=== PATIENT | female | born 1980 | race Caucasian/White ===

== ENCOUNTER 2020-03-07 09:28 | Emergency (ER) | payer BC ==
[2020-03-07] MEDS ORDERED: Orphenadrine 60 MG/2 ML Inj IM STA (09:35)
[2020-03-07] MEDS ORDERED: Ketorolac 30 MG/ML SDV IM ONE (09:35)
[2020-03-07] MEDS ORDERED: predniSONE 20 MG Tab PO ONE (09:35)
--- NOTE | 2020-03-07 09:46 | EDM.PDOC ---
ED HPI GENERAL MEDICAL PROBLEM - General Stated Complaint: lower back pain Time Seen by Provider: 03/07/20 09:30 Source of Information: Reports: Patient History Limitations: Reports: No Limitations - History of Present Illness INITIAL COMMENTS - FREE TEXT/NARRATIVE: Patient comes emergency department today from home with complaints of left lower back pain. This patient for the past couple of days has had some pain in the left lower back in the lower lumbar region. She has had no recent falls trauma or injury. This morning when she woke up she had severe tightening and pain in the left lower back. Pain is sharp shooting stabbing burning in nature and goes somewhat down her left buttocks. She denies any loss of bowel or bladder. She denies any paresthesias otherwise. She denies any change in the functionality of her lower extremities. She is able to ambulate without difficulty. She has been taking some Tylenol without improvement. Couple of months ago she had a very similar sequelae where she saw the chiropractor and never really got much better. She has never seen physical therapy for this. No Covid symptoms no Covid exposure. - Related Data Allergies Allergy/AdvReac Type Severity Reaction Status Date / Time Penicillins Allergy Unknown Cannot Verified 06/28/13 18:41 Remember Sulfa (Sulfonamide Allergy Unknown Cannot Verified 06/28/13 18:41 Antibiotics) Remember Home Meds: Home Meds Amphetamine/Dextroamphetamine [Adderall] 20 mg PO DAILY 06/28/13 [History] FLUoxetine HCl [Fluoxetine] 40 mg PO DAILY 06/28/13 [History] Ondansetron [Zofran Odt] 8 mg PO Q8H PRN #5 tab.rapdis 06/28/13 [Rx] Cyclobenzaprine [Flexeril] 10 mg PO TID PRN #12 tab 03/07/20 [Rx] predniSONE [Prednisone] 40 mg PO DAILY #8 tablet 03/07/20 [Rx] ED ROS GENERAL - Review of Systems Review Of Systems: Comprehensive ROS is negative, except as noted in HPI. ED EXAM,LOWER BACK PAIN/INJURY - Physical Exam Exam: See Below Exam Limited By: No Limitations General Appearance: Alert, WD/WN, No Apparent Distress Ears: Normal External Exam Nose: Normal Inspection Throat/Mouth: Normal Inspection Head: Atraumatic Neck: Normal Inspection Respiratory/Chest: No Respiratory Distress, Lungs Clear, Normal Breath Sounds, Chest Non-Tender Cardiovascular: Normal Peripheral Pulses, Regular Rate, Rhythm GI/Abdominal: Normal Bowel Sounds, Soft (Female) Exam: Deferred Rectal (Female) Exam: Deferred Back Exam: Normal Inspection, Paraspinal Tenderness (Very low lumbar almost sacral joint paraspinal tenderness. There is no rash bruising ecchymosis or other signs of trauma or concern.). No: CVA Tenderness (L), CVA Tenderness (R), Vertebral Tenderness Extremities: Normal Inspection, Normal Range of Motion, Normal Capillary Refill Neurological: Alert, Normal Mood/Affect, Normal Dorsiflexion, Normal Plantar Flexion, Normal Gait, Normal Reflexes, No Motor/Sensory Deficits, Oriented x 3 DTR - Lower Extremities: 0: Ankle (L), 2+: Knee (R), Knee (L), Ankle (R) Psychiatric: Normal Affect, Normal Mood Skin Exam: Warm, Dry, Intact, Normal Color, No Rash Course - Orders/Labs/Meds Orders: Active Orders 24 hr Category Date Time Status Cyclobenzaprine [Take Home: Cyclobenzaprine 10 MG, 4 Med 03/07/20 10:14 Once Tab Pack] 1 packet PO ONETIME ONE Meds: Medications Discontinued Medications Generic Name Dose Route Start Last Admin Trade Name Freq PRN Reason Stop Dose Admin Ketorolac Tromethamine 30 mg 03/07/20 09:35 03/07/20 09:42 Toradol IM 03/07/20 09:36 30 mg ONETIME ONE Administration Orphenadrine Citrate 60 mg 03/07/20 09:35 03/07/20 09:45 Norflex IM 03/07/20 09:36 60 mg NOW STA Administration Prednisone 40 mg 03/07/20 09:35 03/07/20 09:48 Prednisone PO 03/07/20 09:36 40 mg ONETIME ONE Administration - Re-Assessments/Exams Free Text/Narrative Re-Assessment/Exam: 03/07/20 09:46 Ketorolac 30 mg IM. Norflex 60 mg IM. Prednisone 40 mg p.o. 03/07/20 10:25 Patient had quite a bit of improvement of her pain with the above therapy. I discussed home management of this as well as symptomatic management and physical therapy techniques. I did print some exercises for her to complete at home. We will send her home with prednisone and Flexeril. She is not improving see physical therapy. She is comfortable with this plan and her questions are answered. Departure - Departure Time of Disposition: 10:14 Disposition: Home, Self-Care 01 Clinical Impression: Sciatica Qualifiers: Laterality: left Qualified Code(s): M54.32 - Sciatica, left side - Discharge Information Instructions: Sciatica, [id number], Sciatica [facility] Additional Instructions: Tylenol and or Ibuprofen as needed for pain. Ibuprofen may be a better option for this time of pain. Heat or ice to the area which ever is best for you. Do not bedridden yourself do to little, but also do not do to much. It is important for you to stay active to prevent worsening. Flexeril, 1 capsule three times a day as needed for pain muscle spasms. Caution sedation. Starter pack from the ED and RX sent to [facility]. Prednisone 40mg a day for the next 5 days. First dose given in the ED and RX sent to [facility]. See physical therapy if not improving over the next few days. Return to the ED if new or worsening symptoms. Follow up with PCP in the next 4-6 days if not improving sooner if worse. - My Orders Last 24 Hours: My Active Orders 03/07/20 10:14 Cyclobenzaprine [Take Home: Cyclobenzaprine 10 MG, 4 Tab Pack] 1 packet PO ONETIME ONE - Assessment/Plan Last 24 Hours: My Active Orders 03/07/20 10:14 Cyclobenzaprine [Take Home: Cyclobenzaprine 10 MG, 4 Tab Pack] 1 packet PO ONETIME ONE
[2020-03-07] MEDS ORDERED: Take Home: Cyclobenzaprine 10 MG Tab, 4 Tab Pack PO ONE (10:14)
== END 2020-03-07 10:30 | disposition home or self-care (01) ==
LOC: VM.ED 09:28
DX: M54.42 Lumbago with sciatica, left side (principal); Z88.0 Allergy status to penicillin; Z88.2 Allergy status to sulfonamides; Z79.899 Other long term (current) drug therapy
CPT/HCPCS: 96372; 99283; A9270; J1885; J2360; J7512

== ENCOUNTER 2023-08-03 16:52 | Emergency (ER) | payer BC ==
[2023-08-03] MEDS ORDERED: Sodium Chloride 0.9% 10 ML Syringe FLUSH PRN (17:11)
[2023-08-03 17:24] LABS: BASOPHILS PERCENT AUTO 0.3 % (0.2-1.2); HEMOGLOBIN 15.1 g/dL (12.0-16.0); IMMATURE GRAN ABSOLUTE AUTO 0.02 x10^3/uL (0.00-0.07); LYMPHOCYTES ABSOLUTE AUTO 1.3 x10^3/uL (1.0-4.8); LYMPHOCYTES PERCENT AUTO 9.1 % (25.0-50.0); MEAN CORPUSCULAR HEMOGLOBIN 30.4 pg (26.0-32.0); MEAN CORPUSCULAR HGB CONC 34.3 g/dL (32.0-36.0); MEAN CORPUSCULAR VOLUME 88.7 fL (78.0-93.0); MONOCYTES ABSOLUTE AUTO 0.4 x10^3/uL (0.0-0.8); MONOCYTES PERCENT AUTO 2.6 % (2.0-11.0); NEUTROPHILS ABSOLUTE AUTO 12.7 x10^3/uL (1.8-7.7); NEUTROPHILS PERCENT AUTO 87.9 % (50.0-80.0); PLATELET COUNT,PLT 350 x10^3/uL (130-400); RED BLOOD CELL COUNT 4.96 x10^6/uL (4.00-5.50); WHITE BLOOD CELL COUNT,WBC 14.5 x10^3/uL (4.0-10.0)
[2023-08-03] MEDS: Metoclopramide 10 MG/2 ML SDV IVPUSH ONE (17:28)
[2023-08-03] MEDS: Sodium Chloride 0.9% 1,000 ML IV ONE (17:28)
[2023-08-03] MEDS: Morphine 4 MG/ML Syringe IVPUSH ONE (17:30)
[2023-08-03 17:46] LABS: A/G RATIO 1.35; ALANINE AMINOTRANSFERASE,ALT 47 U/L (14-59); ALBUMIN 4.6 g/dL (3.4-5.0); ALKALINE PHOSPHATASE 79 U/L (46-116); ASPARTATE AMNIOTRANSFERASE,AST 18 U/L (15-37); BILIRUBIN TOTAL 0.4 mg/dL (0.2-1.0); BLOOD UREA NITROGEN,BUN 15 mg/dL (7-18); CARBON DIOXIDE,CO2 25 mmol/L (21-32); CHLORIDE,CL 103 mmol/L (98-107); CREATININE 0.8 mg/dL (0.55-1.02); GLUCOSE RANDOM 150 mg/dL (70-99); LIPASE 19 U/L (19-71); POTASSIUM,K 4.1 mmol/L (3.5-5.1); SODIUM,NA 145 mmol/L (136-145)
[2023-08-03 17:48] LABS: ANION GAP 21.1 mmol/L (5-15); ESTIMATED GFR 93 mL/min (>=60)
[2023-08-03] MEDS: Iopamidol 612 MG/ML 100 ML Bottle IVPUSH ONE (18:02)
[2023-08-03] MEDS: Take Home: Acetaminophen/HYDROcodone 325-5 MG, 5 Tab Pack PO ONE (19:00)
== END 2023-08-03 19:04 | disposition home or self-care (01) ==
LOC: VM.ED 16:52
DX: N83.201 Unspecified ovarian cyst, right side (principal); N83.202 Unspecified ovarian cyst, left side; I10 Essential (primary) hypertension; K21.9 Gastro-esophageal reflux disease without esophagitis; E78.00 Pure hypercholesterolemia, unspecified; E66.9 Obesity, unspecified; Z88.0 Allergy status to penicillin; Z88.2 Allergy status to sulfonamides; Z88.8 Allergy status to other drugs, medicaments and biological substances; Z90.710 Acquired absence of both cervix and uterus
CPT/HCPCS: 36415; 74177; 80053; 83690; 85025; 96361; 96374; 96375; 99284; 99284-25; A9270-GY; J2270; J2765; J7030; Q9967

== ENCOUNTER 2023-08-23 07:04 | Day surgery (SDC) | payer BC ==
[2023-08-23] MEDS: Lactated Ringers 1,000 ML IV SCH (07:17)
[2023-08-23] MEDS ORDERED: Propofol 200 MG/20 ML SDV ONE ×2 (08:09→08:23)
[2023-08-23] MEDS ORDERED: fentaNYL 100 MCG/2 ML SDV ONE (08:10)
== END 2023-08-23 09:37 | disposition home or self-care (01) ==
LOC: VM.SDS 07:04
PROVIDERS: ATTEND Family Medicine
DX: D12.6 Benign neoplasm of colon, unspecified (principal); K64.8 Other hemorrhoids; I10 Essential (primary) hypertension; K21.9 Gastro-esophageal reflux disease without esophagitis; E66.9 Obesity, unspecified; Z68.30 Body mass index [BMI] 30.0-30.9, adult; E78.5 Hyperlipidemia, unspecified; F17.210 Nicotine dependence, cigarettes, uncomplicated; Z79.899 Other long term (current) drug therapy
CPT/HCPCS: 00811; J2704; J3010; J7120